=== PATIENT | male | born 1930 | race Caucasian/White ===

== ENCOUNTER 2017-09-16 10:18 | Inpatient (IN) | payer OTHER ==
--- NOTE | 2017-09-15 11:20 | GHP ---
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 He has had a cystoscopy and urodynamics. Urodynamics reveal hi gh pressure bladder obstructed. Cystoscopy reveals bladder cancer with BPH. At the present time, he is admitted for TURBT and may have a second-stage TURP at a later time depending on the extent of th e TURBT procedure. PAST SURGICAL HISTORY: He has had angioplasty, appendectomy, back surgery, cardiac bypass, inguinal hernia, and vasectomy. PAST MEDICAL HISTORY: Positive for hypercholesterolemia, coronary artery disease, BPH. FAMILY HISTORY: Positive for prostate cancer and hypertension. SOCIAL HISTORY: Nonsmoker, nondrinker. , retired. REVIEW OF SYSTEMS: Negative for cardiac, respiratory, GI, and endocrine on the office visit. PHYSICAL EXAMINATION: VITAL SIGNS: Stable. CHEST: Unlabored breathing. HEART: Regular rate and rhythm. ABDOMEN: Obese with no rebound or guarding. GENITALIA: Normal. LOWER EXTREMITIES: Debbie l. At the present time, he is admitted for the TURBT and possible TURP at the same time. We discussed t he plans for addressing the 2 separate issues and may need to be done at separate times. /[id number]/MODL
--- NOTE | 2017-09-16 10:20 | PDHPUP ---
History & Physical Update H&P update statement: This history and physical update is based on an assessment of the patient which was completed after admission or registration (within 24 hours), but prior to the surgery/procedure. H&P update: H&P reviewed & patient examined, no change in patient's condition since H&P completed
[2017-09-16] MEDS ORDERED: LIDOCAINE 1% 2 ML INJ ID PRN (10:52)
[2017-09-16] MEDS ORDERED: LR 1,000 ML IV ONE (10:52)
[2017-09-16] MEDS ORDERED: ceFAZolin 2 GM/DEXTROSE 100 ML IV ONE (11:00)
[2017-09-16] MEDS ORDERED: PROPOFOL 200 MG/20 ML VIAL ONE (12:55)
[2017-09-16] MEDS ORDERED: fentaNYL 100 MCG/2 ML INJ ONE ×2 (12:55)
[2017-09-16] MEDS ORDERED: LIDOCAINE 2% 5 ML SDV ONE (13:00)
[2017-09-16] MEDS ORDERED: LIDOCAINE 2% JELLY 20 ML (UROJECT) ONE (13:03)
--- NOTE | 2017-09-16 13:11 | PDANEPAE ---
ANE History of Present Illness bladder tumor ANE Past Medical History - Cardiovascular History Hx Hypertension: Yes Hx Arrhythmias: No Hx Chest Pain: No Hx Coronary Artery / Peripheral Vascular Disease: Yes Hx CHF / Valvular Disease: No Hx Palpitations: No - Pulmonary History Hx COPD: No Hx Asthma/Reactive Airway Disease: No Hx Recent Upper Respiratory Infection: No Hx Oxygen in Use at Home: No Hx Sleep Apnea: Yes Sleep Apnea Screening Result - Last Documented: Positive Pulmonary History Comment: SEAN USESC-PAP INSTRUCTED TO BRING DOS - Neurologic History Hx Cerebrovascular Accident: No Hx Seizures: No Hx Dementia: Yes Neurologic History Comment: MILD DEMENTIA - Endocrine History Hx Diabetes: No Obesity: yes Endocrine History Comment: HYPOTHYROID - Renal History Hx Renal Disorders: Yes 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 SM BOWEL RESECTION/CHRONIC SMALL BOWEL OBSTRUCTION 2007. ABDOMINAL ADHESIONS. GABG X2 2002. SPINAL FUSION THORACIC/ LUMBAR. APPENDECTOMY ANE Review of Systems Review of Systems: - Exercise capacity METS (RN): 2 METS ANE Patient History - Allergies Allergies/Adverse Reactions: Penicillins Allergy (Verified 09/09/17 13:21) Other-Enter Comments - Home Medications Home medications: home medication list seen and reviewed Home Medications: Acetaminophen [Tylenol ES 500 mg (*)] 1,000 mg PO Q6 PRN 09/09/17 [Last Taken Unknown] Albuterol [Proventil Neb] 3 ml IH Q4HRS PRN 09/09/17 [Last Taken Unknown] Atorvastatin Calcium [Lipitor 10 mg (*)] 10 mg PO HS 09/09/17 [Last Taken ] Donepezil HCl [Aricept 5 MG (*)] 10 mg PO HS 09/09/17 [Last Taken 09/15/17] Levothyroxine [Synthroid 150 mcg (*)] 150 mcg PO DAILY06 09/09/17 [Last Taken ] Loperamide HCl [Imodium 2 mg (*)] 2 mg PO DAILY 09/09/17 [Last Taken 09/15/17] Magnesium Hydroxide [Milk of Magnesia] 30 ml PO DAILY PRN 09/09/17 [Last Taken Unknown] Memantine HCl [Namenda Xr] 14 mg PO HS 09/09/17 [Last Taken 09/15/17] Metoprolol Tartrate [Lopressor 25 mg (*)] 25 mg PO BID 09/09/17 [Last Taken ] Multivitamins [Multivitamin (*)] 1 each PO DAILY 09/09/17 [Last Taken 09/09/17] Ondansetron Odt [Zofran Odt 4 mg (*)] 4 mg PO Q8HRS PRN 09/09/17 [Last Taken Unknown] Tamsulosin HCl [Flomax 0.4 MG (*)] 0.4 mg PO DAILY 09/09/17 [Last Taken 09/15/17 ] Tears/Dextran 70/Hypromellose [Natural Balance Tears (*)] 2 drop EACHEYE BID [Last Taken 1 Week Ago ~09/09/17] - NPO status NPO Since - Liquids (Date): 09/16/17 NPO Since - Liquids (Time): 08:00 NPO Since - Solids (Date): 09/15/17 NPO Since - Solids (Time): 23:00 - Anes Hx Anes Hx: no prior problems - Smoking Hx Smoking Status: Never smoked ANE Labs/Vital Signs - Vital Signs Blood Pressure: 117/57 Heart Rate: 49 Respiratory Rate: 14 O2 Sat (%): 92 Height: 165.1 cm Weight: 95.254 kg ANE Physical Exam - Airway Neck exam: FROM Mallampati Score: Class 2 Mouth exam: normal dental/mouth exam - Pulmonary Pulmonary: no respiratory distress - Cardiovascular Cardiovascular: regular rate and rhythym - ASA Status ASA Status: III ANE Anesthesia Plan Anesthesia Plan: general endotracheal anesthesia
[2017-09-16] MEDS ORDERED: DEXAMETHASONE 4 MG/ML VIAL ONE (13:35)
[2017-09-16] MEDS ORDERED: ONDANSETRON 4 MG/2 ML VIAL ONE (13:35)
[2017-09-16] MEDS ORDERED: SUGAMMADEX SODIUM 200 MG/2 ML VIAL IVP ONE (13:35)
[2017-09-16] MEDS ORDERED: ePHEDrine SULFATE 25 MG/5 ML SYR ONE (13:36)
[2017-09-16] MEDS ORDERED: ROCURONIUM 50 MG/5 ML VIAL ONE ×2 (14:07)
--- NOTE | 2017-09-16 14:08 | POSTANESTH ---
Post Anesthetic Evaluation Cardiovascular Status: Normal, Stable Respiratory Status: Normal, Stable Level of Consciousness/Mental Status: Can Participate in Eval Pain Control: Adequate, Prn Tx Ordered Nausea/Vomiting Control: Adequate, Prn Tx Ordered Complications Possibly Related to Anesthesia: None Noted
--- NOTE | 2017-09-16 14:47 | GOP ---
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 PROCEDURE PERFORMED: Transurethral resection of bladder tumor, large. FINDINGS: SPECIMENS: Specimen was sent to Pathology. I am sure that the specimens will not have muscle involv ed, even though the resection of the original tumor appeared to have fatty tissue at the depth of the incision. He tolerated the procedure well, and he will be transferred to the recovery room. DESCRIPTION OF PROCEDURE: The gentleman underwent general anesthesia, prepped and draped in normal s terile fashion. After appropriate time-out, on his endoscopic assessment, he had significant BPH wit h prostatic lining, and had a superficial transitional cell cancer. He had some on the left bladder neck area. He then had a significant tumor in the dome of the bladder, and several adjacent ones. So, I started with the small adjacent ones first, on a very low setting, and, with just a minor super ficial area of resection, there was fatty tissue noted, and so, at that point, under low pressures, I went ahead and resected the bulk of the tumor with a button. It got to the point that the base appe ared to be free, and I tried to make sure I did not perforate the bladder. Then, the left bladder ne ck area was fulgurated and excised in total, and then the prostatic urethral transitional cell cancer was fulgurated with the button. At the end of the procedure, I irrigated his bladder, and there wer e no chips or clots, and visualization revealed hemostasis at the bladder resection in the left base. There was some bleeding at the prostatic fossa because of the large BPH, so I placed a 22 three-way catheter with a 60 cc balloon, and traction placed. I am going to leave that on for an hour, and th en remove it. At the present time, we will put him in the hospital overnight, and hopefully plan on discharge home. He may need the catheter because of his significant obstruction, and the thinness of the bladder wa ll on the resection. IMPRESSION: He has prostatic transitional cell carcinoma, and probably has some invasive lesions in the dome of the bladder. In an attempt not to perforate the bladder in this elderly gentleman and ca use further complication, I did not take full-thickness resection. Will discuss his findings with his [id number], and admit him overnight for observation. /[id number]/MODL
[2017-09-16] MEDS ORDERED: OPIUM/BELLADONNA ALKALO SUPP PR PRN (14:48)
--- NOTE | 2017-09-16 14:48 | POSTOPPROG ---
Post Op Note Date of Operation: 09/16/17 Surgeon: Gee Kilgore Anesthesia: LMA Pre-op Diagnosis: bladder cancer Procedure: turbt Inf/Abcess present in the surg proc area at time of surgery?: No EBL: Minimal Complications: none--dictated op note Drains: Other (cardenas) Specimen(s): sent
[2017-09-16] MEDS ORDERED: MAGNESIUM HYDROXIDE 30 ML UDCUP PO PRN (14:49)
[2017-09-16] MEDS ORDERED: ONDANSETRON DISINTEGRATING 4 MG TAB PO PRN (14:49)
[2017-09-16] MEDS ORDERED: ALBUTEROL 3 ML DEYVIAL IH PRN ×2 (14:49→16:08)
[2017-09-16] MEDS ORDERED: D5W LR 1,000 ML IV SCH (15:00)
[2017-09-16] MEDS ORDERED: LR 500 ML IV PRN (16:08)
[2017-09-16] MEDS ORDERED: ACETAMINOPHEN 500 MG TAB PO PRN (16:08)
[2017-09-16] MEDS ORDERED: HYDROmorphONE/DILAUDID 2 MG/ML INJ IVP PRN (16:08)
[2017-09-16] MEDS ORDERED: ONDANSETRON 4 MG/2 ML VIAL IVP PRN (16:08)
[2017-09-16] MEDS ORDERED: PROMETHAZINE HCL 25 MG/ML INJ IVP PRN (16:08)
[2017-09-16] MEDS ORDERED: NALOXONE HCL 0.4 MG/ML INJ IVP PRN (16:08)
[2017-09-16] MEDS ORDERED: fentaNYL 100 MCG/2 ML INJ IVP PRN (16:08)
[2017-09-16] MEDS: HYDROCODONE/APAP 5/325 TAB PO PRN (17:42)
[2017-09-16] MEDS: Memantine Hcl [Namenda Xr] 14 MG PO SCH (20:41)
[2017-09-16] MEDS: TEARS/DEXTRAN 70/HYPROMELLOSE 15 ML OPHT.BTL EACHEYE SCH (20:57)
[2017-09-16] MEDS: ATORVASTATIN CALCIUM 10 MG TAB PO SCH (20:58)
[2017-09-16] MEDS: METOPROLOL TARTRATE 25 MG TAB PO SCH ×2 (20:58→21:00)
[2017-09-16] MEDS: DONEPEZIL HCL 5 MG TAB PO SCH (20:58)
[2017-09-17] MEDS: HYDROCODONE/APAP 5/325 TAB PO PRN (03:57)
[2017-09-17] MEDS ORDERED: LEVOTHYROXINE 150 MCG TAB PO SCH (06:00)
[2017-09-17] MEDS: LEVOTHYROXINE 75 MCG TAB PO SCH (06:11)
[2017-09-17] MEDS ORDERED: TAMSULOSIN HCL 0.4 MG CAP PO SCH (09:00)
--- NOTE | 2017-09-17 10:35 | SOAPPROG ---
SOAP Progress Note Assessment/Plan: Assessment: Bladder cancer Acute POD 1, doing well, cont care, hope dc in am Bradycardia Acute per patient, retired general surgeon and discussed event, requests cardiology consult Plan: as noted 09/17/17 10:33 Subjective: doing well yet reports a bradycardiac event last PM and requests cardiology consult Objective: Vital Signs Temp Pulse Resp BP Pulse Ox 36.4 C 47 L 16 105/64 96 09/17/17 07:37 09/17/17 07:37 09/17/17 07:37 09/17/17 07:37 09/17/17 07:37 09/16/17 09/17/17 09/18/17 05:59 05:59 05:59 Intake Total 940 Output Total 4150 Balance -3210 Physical Exam - Physical Exam General Appearance: alert Neck: supple Respiratory: No respiratory distress Cardiac/Chest: regular rate, rhythm Abdomen: soft Male Genitalia: normal genitalia (catheter clean and efflux clear) Skin: warm/dry Neuro/Psych: alert, oriented x 3 ICD10 Worksheet Patient Problems: Problems Problem Status Onset Bladder cancer Acute Bradycardia Acute - ICD10 Problem Qualifiers (1) Bladder cancer (2) Bradycardia
[2017-09-17] MEDS: MULTIVITAMINS 1 EACH TAB PO SCH (10:36)
[2017-09-17] MEDS: METOPROLOL TARTRATE 25 MG TAB PO SCH (10:37)
[2017-09-17] MEDS: LOPERAMIDE HCL 2 MG CAP PO SCH (10:40)
[2017-09-17] MEDS: TEARS/DEXTRAN 70/HYPROMELLOSE 15 ML OPHT.BTL EACHEYE SCH ×2 (10:41→21:19)
[2017-09-17] MEDS: ACETAMINOPHEN 500 MG TAB PO PRN ×2 (10:58→16:59)
--- NOTE | 2017-09-17 11:35 | CPEKG ---
Heart Rate: 50 RR Interval: 1200 P-R Interval: 184 QRSD Interval: 84 QT Interval: 444 QTC Interval: 405 P [place]: 44 QRS [place]: 27 T Wave [place]: 43 EKG Severity - BORDERLINE ECG - EKG Impression: SINUS RHYTHM EKG Impression: PROBABLE LEFT ATRIAL ABNORMALITY Electronically Signed By: Manfred Murdock 17-Sep-2017 12:54:58
--- NOTE | 2017-09-17 15:17 | GCON ---
[f rep st] CONSULTATION CARDIOLOGY CONSULTATION REFERRING PHYSICIAN: Gee Kilgore MD SUPERVISING PATIENT SAFETY COORDINATOR: Dr. Dario De La Cruz. REASON FOR CARDIOLOGY CONSULTATION: Bradycardia. 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 He has significant past history that includes CAD with previous bypass surgery done in 2005 in [place], x2 vessels, (per patient SUERO to the LAD and an SVG to the RCA), history of atrial fibrillation following the flu 18 months ago (he had been on anticoagulation for 3 months, with no further events of atrial fibrillation, was anticoagulation was stopped), borderline hypertension, and hyperlipidemia. He has recently been found to have a high pressure bladder obstruction. Recent cystoscopy done at Dr. Kilgore's office revealed bladder cancer with BPH. He did undergo transurethral resection of the bladder tumor yesterday with Dr. Kilgore, no complications. The patient informs me he had been feeling well post procedure, around 4:00 this morning, waking up with mild shortness of breath and hearing an alarm from his monitor, noting that he had a heart rate in the 30s. He did report some mild left-sided chest pressure, but reporting soon dissipating within a few minutes. Since that time, his heart rate has been remaining low in the 50s. He reports no episodes of lightheadedness, near-syncope, or syncopal events. Prior to his surgery, he reports that he had been noting mild dyspnea on exertion. He reports no history of chest pressure or pain. Besides last evening, denies any orthopnea, PND, edema, palpitations, lightheadedness, near-syncope, or syncopal events. . He denies any recent fevers, chills, or night sweats. PAST MEDICAL HISTORY: Includes CAD, hypercholesteremia, borderline hypertension , sleep apnea (CPAP), hypothyroidism, recent discovered BPH and bladder tumor. PAST SURGICAL HISTORY: Include, as mentioned above, bladder resection with bladder tumor removal done yesterday, CABG x2 vessels in 2005, history of obstructive bowel syndrome, for which he reports he has had multiple surgeries. Also stated history of inguinal hernia and vasectomy. FAMILY HISTORY: He does report a family history of coronary artery disease, reporting his mother of heart disease in her 70s, and younger brother had a heart attack, all over the age of 60. SOCIAL HISTORY: He is a retired physician, general surgeon. He recently, 2 years ago, moved from [place] to [place] to be closer to family due to his has dementia. He currently resides in a halfway facility. He denies any smoking history. Reports rare alcohol use. Denies any illicit drug use. Has 5 adult children. ALLERGIES: The patient reports allergy to penicillin. HOME MEDICATIONS: Include Flomax 0.4 mg p.o. daily, multivitamin 1 tablet p.o. daily, metoprolol tartrate 25 mg p.o. b.i.d., 14 mg p.o. h.s., Lomotil 2 mg p.o. daily, Synthroid 150 mcg p.o. daily, 10 mg p.o. h.s., atorvastatin 10 mg p.o. h.s., Natural Tears 2 drops each eye b.i.d., milk of magnesia 30 mg p.o. daily p.r.n., albuterol 3 mL q.4 hours inhaled p.r.n., acetaminophen 1000 mg p.o. q.6 hours p.r.n., Zofran 4 mg p.o. q.8 hours p.r.n. REVIEW OF SYSTEMS: A 10-point review of systems done on this patient, all negative, except as mentioned above. PHYSICAL EXAMINATION: GENERAL APPEARANCE: Medium built, mildly obese, elderly male. He is alert and oriented to person, place, time, and situation. Appears to be under no acute distress. VITAL SIGNS: Current vital signs are blood pressure of 100/52, heart rate of 57, sinus bradycardia on the monitor. Respirations 16, saturating 96% on 2 L nasal cannula, temperature 36.4 degrees Celsius. HEENT: Head is normocephalic. Lips and tongue are pink and moist, with no signs of cyanosis. Conjunctivae pink. NECK: Trachea is midline, +2 carotid pulses bilateral, no auscultated bruits. No jugular vein distention. RESPIRATORY: Lungs are clear to auscultation, no rhonchi, rales or wheezes. No accessory muscle use. No intercostal muscle retraction noted. CARDIAC: Bradycardic rate, regular rhythm, S1, S2, 1-2/6 systolic murmur noted along the left sternal border. ABDOMEN: Firm, nontender, positive bowel sounds x4 quadrants, no palpable masses. SKIN: [place], warm, dry, no cyanosis, no clubbing, trace pedal edema bilateral lower extremities. VASCULAR: +2 carotids bilateral, +2 radials bilateral, +1 posterior tibial pulses bilateral. LABORATORY STUDIES: He has had no laboratory studies drawn on this admission and none that I can find in current medical records. Studies: Electrocardiogram done at 11 a.m. this morning showing sinus bradycardia, normal axis, Q-waves noted in lead III, no significant ST or T-wave abnormalities. ASSESSMENT AND PLAN: 1. Bradycardia: Patient noted to have heart rates down into the 30s. I reviewed monitoring strips that showed sinus bradycardia. This did happen as he awoke from sleep. He does admit that he has been using his CPAP. He continues to be mildly bradycardic. No episodes of lightheadedness, near- syncope or syncopal events. I agree with holding his current dose of AV aroldo agents of metoprolol. Will continue him on continuous cardiac monitoring. Consideration of placing a 30-day Holter monitor on him as an outpatient. 2. Dyspnea on exertion: Patient reports over the last month he has been noticing some shortness of breath with exertion. He has known history of CAD. With recent bradycardia and known history of CAD, will have him get an echocardiogram to evaluate cardiac structure and function. 3. Chest pressure: Patient was reporting mild episode of chest pressure, lasting for less than a few minutes with bradycardia this morning as he woke. Reporting no other history of chest pressure or pain. Does report he has not followed up with Cardiology in greater than 10 years. History of CABG x2 vessels.He is currently not on aspirin therapy. Dr. Kilgore is concerned about postop bleeding at this time. Will hold off on starting him on any antiplatelet therapy until cleared by surgery. His electrocardiogram showed no acute ST or T-wave abnormalities showing ischemia. Will cycle troponin levels. Evaluate LV function with echocardiogram as mentioned above. 4. Hyperlipidemia: Patient with history of hyperlipidemia and coronary artery disease. He is currently on atorvastatin. Will have him get a fasting lipid panel in the morning to evaluate therapy. 5. Sleep apnea: Patient is wearing his home CPAP machine. 6. Hypertension: His blood pressure is within normal limits. As mentioned above, metoprolol has been held. continue to monitor. 7. Hypothyroidism: With history of bradycardia, currently on Synthroid, will draw a TSH level today to evaluate therapy. 8. Bladder cancer: Status post resection. Care per urology Thank you for this consultation. We will be glad to follow along with you. /[id number]/MODL MTDD
--- NOTE | 2017-09-17 16:30 | ECHO ---
[email or web address] [address] [address] Main: [phone] Fax: Transthoracic Echocardiogram Name: LAURA NUNEZ MR#: [id number] Study Date: 09/17/2017 Study Time: 02:06 PM Date of : 1930 Age: 87 year(s) Height: 165.1 cm (65 in.) Weight: 95.26 kg (210 lb.) BSA: 2.02 m2 Gender: Male Examination: Echo Indication: NITIN AND EPISODE OF CP Image Quality: Adequate Contrast: Requested by: Quintin Fallon BP: / Heart Rate: Rhythm: Indication: NITIN AND EPISODE OF CP Procedure Staff Data Control Clerk: Felicia Medina RDCS Reading Physician: Dario De La Cruz MD Requesting Provider: Conclusions: Normal size left ventricle. Normal global systolic LV function. No regional wall motion abnormality. The left atrium is mildly dilated. Aortic sclerosis is present. No aortic valve stenosis is present. There is no significant aortic valve regurgitation. Trivial tricuspid valve regurgitation. The pulmonary artery pressure is normal. No pericardial effusion. Measurements: [place] Valvular Assessment AV/MV Valvular Assessment TV/PV Normal Normal Normal Name Value Range Name Value Range Name Value Range Ao Nelly (2D): 3.4 cm (1.4 cm-2.6 AV meanP mmHg ( - ) PV Vmax: 0.69 m/s (0.6 m/s-0.9 cm) CACHORRO (VTI): 2.4 cm ( - ) m/s) IVSd (2D): 1.1 cm (0.6 cm-1.1 MV E Vmax: 0.97 m/s ( - ) PV PGmax: 2 mmHg ( - ) cm) MV A Vmax: 1.18 m/s ( - ) LVDd (2D): 4.4 cm (4.2 cm-5.9 MV E/A: 0.82 ( - ) cm) MV PHT: 0.081 s ( - ) LVDs (2D): 2.8 cm (2.1 cm-4 cm) MVA (PHT): 2.7 s ( - ) LVPWd (2D): 1.0 cm (0.6 cm-1 cm) LVOTd 2.1 cm 2.1 cm mm LVEF (BP): 61 % (>=55 %) Continued Measurements: [place] Valvular Assessment AV/MV Valvular Assessment TV/PV Patient: LAURA NUNEZ Study Date: 09/17/2017 Page 1 of 2 02:06 PM Name Value Name Value Name Value LADs: 4.3 cm MV DecTime: 257 m/s CVP (est.): 5 mmHg LADs Lon.0 cm MV E' Septal: 0.08 m/s LA Area: 24.0 cm2 MV E/E' Septal: 12.00 LA Volume: 80 ml MV E/E' Lateral: 11.70 LA Volume Index: 39.6 ml/m2 RA Area: 16.3 cm2 Additional Vessels Name Value Ao Ascendin.9 cm Inferior Vena Cava: 1.3 cm Findings: Left Ventricle: Normal size left ventricle. No LV hypertrophy. Normal global systolic LV function. EF is 61 %. No regional wall motion abnormality. Unable to assess diastolic dysfunction. Right Ventricle: Normal size right ventricle. Normal RV function. Left Atrium: The left atrium is mildly dilated. Right Atrium: The right atrium is normal in size. Mitral Valve: The mitral valve is normal in appearance and function. Mild mitral valve regurgitation is present. No mitral stenosis is present. Aortic Valve: The aortic valve is tri-leaflet. Aortic sclerosis is present. No aortic valve stenosis is present. There is no significant aortic valve regurgitation. Tricuspid Valve: The tricuspid valve is normal in appearance and function. Trivial tricuspid valve regurgitation. The pulmonary artery pressure is normal. Pulmonic Valve: The pulmonic valve is normal in appearance and function. There is no pulmonic regurgitation seen. Aorta: The aorta is normal. Normal size aortic root measuring 3.4 cm. Normal size ascending aorta measuring 2.9 cm. IVC: The IVC is normal sized. Pericardium: No pericardial effusion. No pleural effusion. (No Signature Object) Patient: LAURA NUNEZ Study Date: 09/17/2017 Page 2 of 2 02:06 PM [id number]
--- NOTE | 2017-09-17 16:45 | ASMTCMCOM ---
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 He had a TURBT. His DC needs are unclear. CM to follow. Date Signed: 09/17/2017 04:45 PM Electronically Signed By:Honey Contreras LCSW
--- NOTE | 2017-09-17 19:10 | PDMN ---
Medical Necessity Medical necessity: C/M review: Patient meets INPT criteria under [facility] Supraventricular arrhythmias: Acute and persistent sinus bradycardia - heart rate down into the 30's (documented on cardiac monitoring strips), occurred when patient awoke from sleep, heart rate 47-62 when awake of unclear etiology S /P 09/16/2017 surgery - transurethral resection of bladder tumor for bladder cancer, dyspnea on exertion, chest pressure, initial troponin <0.012, (while holding Metoprolol), requiring Cardiology consult, echocardiogram, planned 2017 evening troponin, 09/18/2017 AM troponin, ongoing cardiac monitoring, pulse oximetry, supplemental O2, home CPAP use, hold Metoprolol, bladder cancer S/P resection per Urology comorbid hyperlipidemia, sleep apnea, hypertension, hypothyroidism, history of CAD, CABG x 2 vessels in 2005. [employer] anticipates > 2 MN LOS for ongoing med nec for eval and TX of above. Patient is Medicare Advantage which follows guidelines CMS puts forth.
[2017-09-17] MEDS: Memantine Hcl [Namenda Xr] 14 MG PO SCH (21:18)
[2017-09-17] MEDS: ATORVASTATIN CALCIUM 10 MG TAB PO SCH (21:19)
[2017-09-17] MEDS: DONEPEZIL HCL 5 MG TAB PO SCH (21:20)
[2017-09-18] MEDS: LEVOTHYROXINE 75 MCG TAB PO SCH (05:53)
[2017-09-18] MEDS: ACETAMINOPHEN 500 MG TAB PO PRN (06:07)
[2017-09-18 06:21] LABS: PLATELET COUNT 86 10^3/uL (150-400)
--- NOTE | 2017-09-18 09:21 | PDCARPN ---
Cardiology Progress Note Chief Complaint: Patient reports he would like to go home. Assessment/Plan: Assessment: 87-year-old male. Significant past history CAD with previous CABG x2 vessels in 2005, 1 episode of atrial fibrillation 18 months ago with respiratory infection, hypercholesteremia, borderline hypertension, sleep apnea (CPAP) hypothyroidism, BPH and recently found bladder tumor. Underwent trans urethral resection bladder tumor by Dr. Kilgore on 09/16. Postop night, noted episodes of sinus bradycardia with heart rate dropped into the high 30s. Patient did report mild chest pressure that dissipated within a few minutes with slower heart. Telemetry monitoring at time bradycardia showing sinus rhythm with no malignant pauses or arrhythmias. Echocardiogram done 09/17/2017 showing normal LV systolic function EF 61%, no wall motion abnormalities. LA is mildly day elevated, trivial TR, normal pulmonary pressures. Electrocardiogram done 09/17 showing sinus bradycardia with no acute ST or T-wave abnormalities. Metoprolol tartrate has been held. Today: Patient noted overnight to have heart rates into the 40s, sinus bradycardia. With no malignant arrhythmias or pauses. He reports no lightheadedness, near-syncope or syncopal events. Reports no further episodes of chest pressure or pain. Denies of any shortness of breath. Laboratory studies showed negative troponins x3, normal electrolyte renal function. Noted elevated WBC (15.47) 09/17. Repeated studies today show downward decline of 10.62. Patient has been afebrile. Plan: 1. Bradycardia: Noted to be sinus with no pauses or malignant arrhythmias. He is asymptomatic of slower heart rate. Discontinue his metoprolol. Will plan on outpatient that patient undergo 30 day monitor for further evaluation. 2. Chest pressure: Patient reports fleeting episode midsternal chest pressure that dissipated within a few min with episode of bradycardia in a.m. 09/17. Reporting no further events since then. Chest pressure not associated with shortness of breath, nausea, or diaphoresis. Known history of CAD. He has had negative troponins x3. Echocardiogram showing normal LV systolic function no wall motion abnormality. Consideration of stress testing as an outpatient. 3. CAD: Patient with past history of CABG x2 vessels. Have recommended when cleared by surgery he resume taking anti-platelet therapy of aspirin. 81 mg p.o. Q.day. He is on secondary risk prevention of atorvastatin. 4. HTN: BP apear to be WNL, despite not metoprolol. No new meds at this time, reevaluation as an outpatient 5. PAF: Patient reports episodes of atrial fibrillation after respiratory infection. He had briefly been on anticoagulation for 3 months, but discontinued because no further episodes. Will re-evaluate the 30 day monitor. 6. Hyperlipidemia: Patient is on atorvastatin. Morning laboratory studies showing adequate suppression LDL at 52. 7. Hypothyroidism: Patient has resume Synthroid. TSH yesterday was 1.150. 8. Sleep apnea: Patient uses home CPAP. 9. Bladder tumor: Status post resection. Care per Urology. From cardiac standpoint, patient may be discharged home today. I will arrange for him to have a follow-up visit in our office, with plans of him having a 30 day monitor sent to his house. 09/18/17 09:19 Subjective: He denies of any chest pressure or pain. Reports no shortness of breath, with some lightheadedness, palpitations, orthopnea, near-syncope or syncopal events. Reviewed/Discussed With: multidisciplinary team (Patient RN), other (Dr Banks) Objective: Vital Signs (8 Hrs) Temp Pulse Resp BP Pulse Ox 09/18/17 05:55 35.9 C L 50 L 16 143/68 H 94 Intake/Output (24 Hrs) 09/17/17 09/18/17 09/19/17 05:59 05:59 05:59 Intake Total 940 1200 Output Total 4150 650 Balance -3210 550 Intake: Oral (ml) 340 1000 IV Intake (ml) 600 200 Output: Urine (ml) 4100 650 Catheter 4100 650 Estimated Blood Loss (ml) 50 Other: Weight 95.254 kg Bladder Scan Volume (ml) Catheter 71 Result Diagrams: 09/18/17 06:00 09/18/17 06:00 Cardiac Labs: Cardiac Lab Results (72 Hrs) 09/18/17 09/17/17 09/17/17 06:00 20:15 15:00 Troponin I < 0.012 < 0.012 < 0.012 - Physical Exam Constitutional: WDWN, no apparent distress, obese Ears, Nose, Mouth, Throat: moist mucous membranes Cardiovascular: regular rate and rhythm (Sinus bradycardia on the monitor), no murmurs, no rubs, pulses symmetric bilat, No jugular vein distention Peripheral Pulses: 1+: dorsalis-pedis (R), dorsalis-pedis (L), 2+: carotid (R), carotid (L) Respiratory: clear to auscultate bilat, no crackles, no wheezes Gastrointestinal: normoactive bowel sounds, no tenderness, no masses Skin: no rashes, warm, other, No no edema (Trace pedal edema bilateral extremities) Neurologic: AAOx3 Psychiatric: cooperative, interactive, following commands ICD10 Worksheet Patient Problems: Problems Problem Status Onset Bladder cancer Acute Bradycardia Acute
[2017-09-18] MEDS: MULTIVITAMINS 1 EACH TAB PO SCH (10:34)
[2017-09-18] MEDS: TEARS/DEXTRAN 70/HYPROMELLOSE 15 ML OPHT.BTL EACHEYE SCH (10:35)
[2017-09-18] MEDS: LOPERAMIDE HCL 2 MG CAP PO SCH (10:35)
--- NOTE | 2017-09-18 11:27 | SOAPPROG ---
SOAP Progress Note Assessment/Plan: Assessment: Bladder cancer Acute POD 1, doing well, cont care, hope dc in am Bradycardia Acute per patient, retired general surgeon and discussed event, appreciate cardiology consult Plan: dc home with cardenas see wed for cath removal, follow up with cardiology for holter 09/18/17 11:25 Subjective: feeling well Objective: Vital Signs Temp Pulse Resp BP Pulse Ox 36.4 C 47 L 17 139/65 H 97 09/18/17 09:31 09/18/17 09:31 09/18/17 09:31 09/18/17 09:31 09/18/17 09:31 Laboratory Results 09/18/17 06:00 09/18/17 06:00 09/17/17 09/18/17 09/19/17 05:59 05:59 05:59 Intake Total 940 1200 Output Total 4150 650 Balance -3210 550 Physical Exam - Physical Exam General Appearance: alert Neck: supple Respiratory: No respiratory distress Cardiac/Chest: regular rate, rhythm Neuro/Psych: alert, oriented x 3 ICD10 Worksheet Patient Problems: Problems Problem Status Onset Bladder cancer Acute Bradycardia Acute - ICD10 Problem Qualifiers (1) Bladder cancer (2) Bradycardia
--- NOTE | 2017-09-18 11:32 | PDIAF ---
- Diagnosis Diagnosis: bladder cancer Code Status: Full Code - Medication Management Discharge Medications: Medications to Continue on Transfer Acetaminophen [Tylenol ES 500 mg (*)] 1,000 mg PO Q6 PRN 09/09/17 [Last Taken Unknown] Albuterol [Proventil Neb] 3 ml IH Q4HRS PRN 09/09/17 [Last Taken Unknown] Atorvastatin Calcium [Lipitor 10 mg (*)] 10 mg PO HS 09/09/17 [Last Taken ] Donepezil HCl [Aricept 5 MG (*)] 10 mg PO HS 09/09/17 [Last Taken 09/15/17] Levothyroxine [Synthroid 150 mcg (*)] 150 mcg PO DAILY06 09/09/17 [Last Taken ] Loperamide HCl [Imodium 2 mg (*)] 2 mg PO DAILY 09/09/17 [Last Taken 09/15/17] Magnesium Hydroxide [Milk of Magnesia] 30 ml PO DAILY PRN 09/09/17 [Last Taken Unknown] Memantine HCl [Namenda Xr] 14 mg PO HS 09/09/17 [Last Taken 09/15/17] Multivitamins [Multivitamin (*)] 1 each PO DAILY 09/09/17 [Last Taken 09/09/17] Tears/Dextran 70/Hypromellose [Natural Balance Tears (*)] 2 drop EACHEYE BID [Last Taken 1 Week Ago ~09/09/17] Application Coordinator Antibiotics: no Discharge Medications: Refer to the Discharge Home Medication list for PRN reason. PICC Care - Routine: N/A - Orders Services needed: Home [facility]pc Care Face to Face: I certify that this patient was under my care and that I had the required [id number] encounter meeting the encounter requirements on the discharge day. My findings support the fact that the patient is homebound as defined in Home Care Face to Face Continued: CMS Chapter 7 Medicare Benefits Manual 30.1.1 , The condition of the patient is such that there exists a normal inability to leave home and consequently, leaving home would require a considerable and taxing effort. Oxygen: 2 liters if not able to be off in hospital prior to dc Diet Recommendation: no restrictions on diet Diet Texture: Regular Texture Diet Cardenas: Yes Additional Instructions: cath care instructions, he is independent living and needs some assistance with catheter issues - Follow Up Care Current Providers and Referrals: [facility] [Primary Care Provider] - Michelle Banks MD [Medical Doctor] - ([facility] will call you Wednesday to schedule you for a follow up appointment and set up 30 day monitor) Gee Kilgore MD [Medical Doctor] - (wednesday for cardenas removal)
[2017-09-18 12:12] VITALS: BP 137/63
--- NOTE | 2017-09-18 16:14 | ASMTCMCOM ---
CM Note CM Note Notes: CM met with patient and son Dylan (POA [phone] - Dylan is a RN). Discharge orders placed for today to return to [facility] with RN/[facility] care. Patient/son state [facility] is preferred, ok for CM to to send to additional agencies as well. [facility] accepted, patient and family ok with Wednesday start. IM delivered and signed for receipt D/C Plan: D/C today with family to [facility], [facility] to start on Wednesday. Date Signed: 09/18/2017 04:14 PM Electronically Signed By:Lis Pope
--- NOTE | 2017-09-18 16:16 | ASDISCHSUM ---
Discharge Information Plan Status: Medically Cleared to Leave: Discharge Date:09/18/2017 01:10 PM D/C Disposition: ADT D/C Disposition:Home, Routine, Self-Care Projected Discharge Date:09/18/2017 11:00 AM Transportation at D/C: Discharge Delay Reason: Follow-Up Date:09/18/2017 11:00 AM Discharge Slot: Final Diagnosis: Placement Information Referral Type:*Long Term/SNF Referral ID:[id number] Provider Name: Address 1: Phone Number: Address 2: Fax Number: City: Selection Factors: State: Referral Type:*Home Health Care Services Referral ID:[id number] Provider Name:[facility]) Address 1:[address] [address] Address 2: City:[place] Selection Factors: State:[place] Patient Contact Information Contact Name:MARGIE Relationship:Son Address:[address] Work Phone: City:[place] 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 He had a TURBT. His DC needs are unclear. CM to follow. Date Signed: 09/17/2017 04:45 PM Electronically Signed By:Honey Contreras LCSW [facility] CM Progress Note CM Note CM Note Notes: CM met with patient and son Dylan (POA [phone] - Dylan is a RN). Discharge orders placed for today to return to [facility] with RN/[facility] care. Patient/son state [facility] is preferred, ok for CM to to send to additional agencies as well. [facility], patient and family ok with Wednesday start. IM delivered and signed for receipt D/C Plan: D/C today with family to [facility], [facility] to start on Wednesday. Date Signed: 09/18/2017 04:14 PM Electronically Signed By:Lis Pope Intervention Information Intervention Type:*Incorrect Registration Date of Service:09/16/2017 03:23 PM Patient Type:Observation Staff Member:ANN MARIE Medrano Susan Hours: Discipline: Severity: Comment: Intervention Type:*IM-Signed Date of Service:09/18/2017 04:15 PM Patient Type:Inpatient Staff Member:Lis Pope Hours: Discipline: Severity: Comment:
--- NOTE | 2017-09-18 18:32 | GDS ---
[f rep st] DISCHARGE SUMMARY ADMISSION DIAGNOSIS: Bladder cancer. DISCHARGE DIAGNOSIS: Bladder cancer, plus bradycardia. HOSPITAL COURSE: He underwent a TURBT. He had a catheter placed. Postop day 1 he had a bradycardic event. Cardiology had seen him and provided appropriate recommendations. They stopped his metoprol ol and he will be discharged home with a catheter and to see me on Wednesday for catheter removal and discussion of pathology, and to make further plans on medical care. He will make an appointment to see Cardiology in the future for possible Holter monitor type evaluation. Pathology pending at the [facility]. /[id number]/MODL
== END 2017-09-18 13:10 | disposition home or self-care (01) | DRG 670 ==
LOC: UNDOADMIN 10:18 → INTOOBSV 10:18 → OBSVTOIN 10:18 → F1N 10:18 → UNDODISIN 09-18 13:10
PROVIDERS: ADMIT Specialist; ATTEND Specialist
PROC: 0TBB8ZZ Excision of Bladder, Via Natural or Artificial Opening Endoscopic (ICD-10-PCS; principal; 2017-09-16 13:00)
PROC: 0TB Urinary System, Excision (ICD-10-PCS; principal; 2017-09-16 13:00)
DX: C67.1 Malignant neoplasm of dome of bladder (principal); C67.5 Malignant neoplasm of bladder neck; R00.1 Bradycardia, unspecified; N40.0 Benign prostatic hyperplasia without lower urinary tract symptoms; I25.10 Atherosclerotic heart disease of native coronary artery without angina pectoris; E03.9 Hypothyroidism, unspecified; G47.30 Sleep apnea, unspecified; E78.5 Hyperlipidemia, unspecified; I10 Essential (primary) hypertension; Z95.1 Presence of aortocoronary bypass graft
CPT/HCPCS: G0378; J0690; J1100; J2405; J2704; J3010